=== PATIENT | female | born 1965 | race Hispanic/Latino ===

== ENCOUNTER → 2017-12-14 | Outpatient (CLI) | payer SELFPAY ==
--- NOTE | 2017-12-14 20:30 | Diagnostic Imaging Report ---
Parathyroid Scan Reason for exam: Secondary hyperparathyroidism Radiopharmaceutical: Tc-99m sestamibi 27 mCi After intravenous administration of the radiopharmaceutical, immediate and 2-hour planar images of the neck and upper chest were obtained. Tomographic images of the neck and upper chest were also obtained following the initial planar images. Distribution of tracer activity appears physiologic throughout the neck and upper chest on the planar and tomographic images. No focal areas of increased tracer accumulation are identified. On the delayed planar images, washout of tracer from the thyroid is nearly complete with no focal areas of persistent tracer activity. Impression: Negative parathyroid scan No enlarged hypermetabolic parathyroid glands are identified. Signed by: Dr. Jacklyn Thomas M.D. on 12/14/2017 8:27 PM
== END ==
LOC: NM 08:41
PROVIDERS: ATTEND Internal Medicine Endocrinology, Diabetes & Metabolism
DX: E21.1 Secondary hyperparathyroidism, not elsewhere classified (principal)
CPT/HCPCS: 78071; A9500